=== PATIENT | male | born 1970 | race Caucasian/White ===

== ENCOUNTER 2023-08-30 11:58 | Observation (INO) ==
[2023-08-30] MEDS ORDERED: Lactated Ringers SEPSIS* BAG 2,590 ML IV ONE (12:15)
[2023-08-30] MEDS ORDERED: metroNIDAZOLE IV 500 MG/100ML 500 MG/100 ML BAG IVPB ONE (12:15)
[2023-08-30] MEDS ORDERED: Cefepime 2 GM in Dextrose 2 GM/50 ML BAG IV ONE (12:15)
[2023-08-30 12:48] LABS: INR 1.32 (0.83-1.13)
[2023-08-30] MEDS ORDERED: Vancomycin 1,250 MG in NS 0.9% 250 ml 250 ML IVPB SCH (13:00)
[2023-08-30 13:12] LABS: Rapid COVID-19 Molecular Undetected (Undetected)
[2023-08-30 13:14] LABS: ALT 12 U/L (7-52); AST 9 U/L (13-39); Albumin/Globulin Ratio 1.1 (1-3); Alkaline Phosphatase 89 U/L (35-149); Anion Gap 8 mmol/L (2-16); Blood Urea Nitrogen 15 mg/dL (6-24); CO2 Carbon Dioxide 28 mmol/L (22-32); Chloride 93 mmol/L (101-111); Creatinine, Serum 1.05 mg/dL (0.67-1.17); Globulin 3.5 g/dL (2-4); Glucose 171 mg/dL (70-100); Lipase < 10 U/L (11.0-82.0); Potassium 4.5 mmol/L (3.5-5.0); Sodium 129 mmol/L (135-145); Total Bilirubin 0.5 mg/dL (0.2-1.0); Total Protein 7.5 g/dL (6.4-8.9); eGFR CKD-EPI 83.8 (>60)
[2023-08-30 13:19] LABS: High Sens Troponin Baseline 7 pg/mL (<20)
[2023-08-30 13:27] LABS: ABS Lymphocytes 0.8 10^3/uL (1.0-4.8); ABS Monocytes 0.5 10^3/uL (0.0-1.1); ABS Neutrophils 8.3 10^3/uL (1.5-7.6); ABS Nucleated RBC 0.02 10^3/ul; Hematocrit 47.7 % (38-53); Hemoglobin 16.4 g/dL (13.2-16.3); Lymphocyte % 8.7 %; Mean Corpuscular Hgb Conc 34.5 g/dL (31-36); Mean Corpuscular Volume 95.7 fL (80-97); Mean Platelet Volume 11.3 fL (7.5-11.2); Nucleated Red Blood Cells % 0.2 %/100WBC (0.0-0.8); Platelet Count 121 10^3/uL (150-450); Red Blood Count 4.98 10^6/uL (4.06-5.63); Red Cell Distribution Width 15.7 % (12-17); White Blood Count 9.6 10^3/uL (3.6-10.2)
[2023-08-30 13:40] LABS: Venous Bicarbonate HCO3 25.9 mmol/L (24-28)
[2023-08-30 13:45] LABS: Influenza A Molecular Negative (Negative); Influenza B Molecular Negative (Negative)
[2023-08-30 14:07] LABS: High Sensitivity Troponin 1 Hr 6 pg/mL (<20)
[2023-08-30] MEDS ORDERED: Iodixanol (CONTRAST) 320 MG/ML 100 ML SDV IV ONE (14:43)
[2023-08-30 16:34] LABS: Urine Appearance Clear; Urine Bacteria Absent (Absent); Urine Bilirubin Negative (Negative); Urine Blood Negative (Negative); Urine Color Yellow; Urine Glucose Negative (Negative); Urine Ketones Trace (Negative); Urine Nitrite Negative (Negative); Urine Protein 1+(30 mg/dL) (Negative); Urine Red Blood Cell Trace(0-2/hpf) (Absent); Urine Squamous Epithelial Cell Present (Absent); Urine Urobilinogen Negative (Negative); Urine White Blood Cell Absent (Absent)
[2023-08-30 16:41] LABS: Urine Specific Gravity > 1.060 (1.002-1.030)
[2023-08-30 18:16] LABS: PCO2 Arterial 38 mmHg (35-45); PO2 Arterial 76 mmHg (80-100)
[2023-08-30 20:13] LABS: Alcohol, S < 13 mg/dL (<13)
[2023-08-30] MEDS ORDERED: Senna TAB 8.6 mg TAB PO PRN (22:25)
[2023-08-30] MEDS ORDERED: Polyethylene Glycol 3350 17 GM PACKET PO PRN (22:25)
[2023-08-30] MEDS ORDERED: Magnesium Hydroxide LIQ 30 ML UDC PO PRN (22:25)
[2023-08-30] MEDS ORDERED: Ondansetron 4 mg VIAL 2 MG/ML 2 ml VIAL IV PRN (22:25)
[2023-08-30] MEDS ORDERED: Al Hydrox/Mg Hydrox/Simet LIQ 30 ML UDC PO PRN (22:25)
[2023-08-30] MEDS ORDERED: NS 0.9% 1000 ml BAG 1,000 ML IV SCH (22:30)
[2023-08-30] MEDS ORDERED: Dextrose 50% Syringe 50 ml 25 GM/50 ML SYRINGE IV PUSH PRN (22:31)
[2023-08-30] MEDS: Ranolazine 500 mg TAB ER (NF) PO SCH (22:55)
[2023-08-30] MEDS: Insulin GLARGINE 100 un/ml 10 ml VIAL SUBCUT SCH (22:59)
[2023-08-31] MEDS: Enoxaparin 40 MG/0.4 ML SYR SUBCUT SCH ×2 (00:49→20:30)
[2023-08-31 06:23] LABS: Creatinine, Serum 0.6 mg/dL (0.67-1.17); Magnesium 1.7 mg/dL (1.9-2.7)
[2023-08-31 07:21] LABS: ABS Lymphocytes 0.9 10^3/uL (1.0-4.8); ABS Monocytes 0.4 10^3/uL (0.0-1.1); ABS Neutrophils 3.9 10^3/uL (1.5-7.6); ABS Nucleated RBC 0.01 10^3/ul; Eosinophil % 0.1 %; Hematocrit 40.1 % (38-53); Hemoglobin 13.8 g/dL (13.2-16.3); Lymphocyte % 17.4 %; Mean Corpuscular Hemoglobin 32.8 pg (27-33); Mean Corpuscular Hgb Conc 34.4 g/dL (31-36); Mean Corpuscular Volume 95.3 fL (80-97); Mean Platelet Volume 10.3 fL (7.5-11.2); Nucleated Red Blood Cells % 0.2 %/100WBC (0.0-0.8); Platelet Count 94 10^3/uL (150-450); Red Cell Distribution Width 15.8 % (12-17); White Blood Count 5.2 10^3/uL (3.6-10.2)
[2023-08-31] MEDS ORDERED: Magnesium Sulfate 2 gm BAG 2 GM/50 ML BAG IVPB ONE (08:11)
[2023-08-31] MEDS ORDERED: Magnesium Sulfate IV 1GM/100ML 1 GM/100 ML BAG IV ONE (10:11)
[2023-08-31] MEDS: Insulin GLARGINE 100 un/ml 10 ml VIAL SUBCUT SCH ×2 (12:35→20:49)
[2023-08-31] MEDS ORDERED: Regadenoson 0.4 MG/5 ML SYRINGE ONE (12:58)
[2023-08-31] MEDS ORDERED: Aminophylline 25 MG/ML VIAL ONE (12:58)
[2023-08-31] MEDS: Isosorbide Mononit ER 30mg TAB PO SCH (15:33)
[2023-08-31] MEDS: Cholecalciferol (VIT D3) 1,000 unit TAB PO SCH (15:33)
[2023-08-31] MEDS: Ranolazine 500 mg TAB ER (NF) PO SCH ×2 (15:42→20:31)
[2023-09-01 05:47] LABS: ABS Lymphocytes 1.7 10^3/uL (1.0-4.8); ABS Monocytes 0.6 10^3/uL (0.0-1.1); ABS Neutrophils 2.7 10^3/uL (1.5-7.6); Eosinophil % 0.6 %; Hematocrit 38.8 % (38-53); Hemoglobin 13.4 g/dL (13.2-16.3); Lymphocyte % 34.2 %; Mean Corpuscular Hemoglobin 32.8 pg (27-33); Mean Corpuscular Hgb Conc 34.5 g/dL (31-36); Mean Corpuscular Volume 95.2 fL (80-97); Mean Platelet Volume 10.1 fL (7.5-11.2); Nucleated Red Blood Cells % 0.1 %/100WBC (0.0-0.8); Platelet Count 98 10^3/uL (150-450); Red Blood Count 4.08 10^6/uL (4.06-5.63); Red Cell Distribution Width 15.3 % (12-17); White Blood Count 5.1 10^3/uL (3.6-10.2)
[2023-09-01 06:03] LABS: Creatinine, Serum 0.61 mg/dL (0.67-1.17); Potassium 4.2 mmol/L (3.5-5.0); eGFR CKD-EPI 113.4 (>60)
[2023-09-01] MEDS: Cholecalciferol (VIT D3) 1,000 unit TAB PO SCH (10:00)
[2023-09-01] MEDS: Insulin GLARGINE 100 un/ml 10 ml VIAL SUBCUT SCH (10:01)
[2023-09-01] MEDS: Isosorbide Mononit ER 30mg TAB PO SCH (10:02)
[2023-09-01] MEDS: Ranolazine 500 mg TAB ER (NF) PO SCH (10:03)
[2023-09-01 14:16] VITALS: BP 113/77
== END 2023-09-01 15:45 ==
LOC: ED 11:58 → EDHOLD 11:58 → SUATTDRO 22:25 → MED 08-31 01:38
PROVIDERS: ADMIT Internal Medicine; ATTEND Internal Medicine